=== PATIENT | male | born 1975 | race Caucasian/White ===

== ENCOUNTER 2017-10-19 09:29 | Emergency (ER) | END 2017-10-19 11:17 | disposition home or self-care (01) ==

== ENCOUNTER 2017-11-12 15:41 | Emergency (ER) | END 2017-11-12 17:32 | disposition home or self-care (01) ==

== ENCOUNTER 2017-12-08 18:34 | Emergency (ER) | END 2017-12-08 21:11 | disposition home or self-care (01) ==